=== PATIENT | male | born 1985 | race African-American/Black ===

== ENCOUNTER 2023-10-23 14:09 | Emergency (ER) | payer MEDICAID, OTHER ==
[~2023-10-23] VITALS: Ht 162.6 cm; Wt 100.0 kg
[2023-10-23 15:04] VITALS: BP 126/88; PULSE 68; RESP 18; TEMP 97.7; O2SAT 99
[2023-10-23] MEDS: ACETAMINOPHEN 325 MG TAB PO ONE (15:46)
[2023-10-23] MEDS ORDERED: CEPH500C PO (16:12)
== END 2023-10-23 16:33 | disposition home or self-care (01) ==
LOC: ER 14:09
DX: S61.411A Laceration without foreign body of right hand, initial encounter (principal); W26.8XXA Contact with other sharp object(s), not elsewhere classified, initial encounter; Y93.89 Activity, other specified; Y92.89 Other specified places as the place of occurrence of the external cause; Y99.8 Other external cause status
CPT/HCPCS: 12001